=== PATIENT | female | born 1985 | race Two or more races ===

== ENCOUNTER 2017-07-20 15:46 | Emergency (ER) | payer OTHER ==
[~2017-07-20] VITALS: Ht 165.1 cm; Wt 93.4 kg
[2017-07-20] MEDS ORDERED: IBUPROFEN 600 MG TAB PO STA (15:50)
[2017-07-20] MEDS ORDERED: LIDOCAINE HCL 1% LOCAL INJ 20 ML VIAL INJ ONE (16:15)
[2017-07-20] MEDS ORDERED: TETANUS/DIPHTHERIA TOX ADULT 0.5 ML SYR IM ONE (16:15)
[2017-07-20 17:38] VITALS: BP 111/75
== END 2017-07-20 17:28 | disposition home or self-care (01) ==
LOC: ER 15:46
DX: S61.213A Laceration without foreign body of left middle finger without damage to nail, initial encounter (principal); Z33.1 Pregnant state, incidental
CPT/HCPCS: 12001; 99283; J2001

== ENCOUNTER 2017-07-26 22:39 | Emergency (ER) | payer OTHER ==
[~2017-07-26] VITALS: Ht 165.1 cm; Wt 93.4 kg
--- OUTSIDE RECORDS SUMMARY | 2017-07-26 22:41 | XMS REPORT | Continuity of Care Document ---
Author Author [facility] Organization [facility] Address [address] [place] [address] Phone Unavailable Care Team Providers Care [employer] Professor Name Role Phone NO, PCP PCP Unavailable Advance Directives Directive Response Recorded Date/Time Does the patient have an advance directive? No 07/20/17 5:33pm If yes, is advance directive on file with [facility]? No 07/20/17 5:33pm If not on file with [facility] will patient provide a copy? No 07/20/17 5:33pm Do you have a Directive to Physician? No 07/20/17 5:33pm Do you have a Medical Power of Gear Machinist? No 07/20/17 5:33pm Do you have an out of hospital Do Not Resuscitate Order? No 07/20/17 5:33pm Do you have any special needs we should be aware of? No 07/20/17 5:33pm Do you have a support person here with you today? No 07/20/17 5:33pm Did patient receive Notice of Privacy Practices? Yes 07/20/17 5:33pm Did patient receive patient rights and responsibilities? Yes 07/20/17 5:33pm Problems No problem information available. Medications No medication information available. Social History No social history information available. Hospital Discharge Instructions No hospital discharge instruction information available. Plan of Care Discharge Date 07/20/17 5:28pm Disposition HOME, SELF-CARE Condition at Discharge Stable Instructions/Education Provided Laceration Forms Provided Work/School Excuse Prescriptions See Medication Section Referrals NATY JONES MD Address: [address] [place] [address] [address] [place] [address] Additional Instructions/Education 1. follow up with your doctor in 1-2 days without fail 2. return to ed as needed 3. tylenol as needed for pain 4. sutures out in 5-7 days Functional Status No functional status information available. Allergies, Adverse Reactions, Alerts No known allergies. Immunizations No immunization information available. Vital Signs Acute Vital Signs Vital Response Date/Time Pulse Pulse Rate (adult) 95 bpm (60 - 90) 07/20/2017 5:38pm Respiratory Rate 20 bpm (12 - 24) 07/20/2017 5:38pm Blood Pressure 111/75 mm Hg 07/20/2017 5:38pm Height 5 ft 5 in 07/20/2017 3:59pm Weight 206 lb 07/20/2017 3:59pm Body Mass Index 34.3 kg/m^2 07/20/2017 3:59pm Results No relevant diagnostic test, laboratory data and/or discharge summary information available. Procedures No procedure information available. Encounters Encounter Location Arrival/Admit Date Discharge/Depart Date Attending Provider Departed Emergency Room [facility] 07/20/17 3:46pm 5:28pm DERRICK EMMANUEL MD
== END 2017-07-26 23:10 | disposition home or self-care (01) ==
LOC: ER 22:39
DX: Z48.00 Encounter for change or removal of nonsurgical wound dressing (principal)
CPT/HCPCS: 99282

== ENCOUNTER 2018-03-10 13:46 | Emergency (ER) | payer OTHER ==
[~2018-03-10] VITALS: Ht 165.1 cm; Wt 89.4 kg
--- NOTE | 2018-03-10 16:04 | Diagnostic Imaging Report ---
Exam: Right Ankle Series. History: Ankle pain after fall Comparison: None. DISCUSSION: 3 views of the right ankle. There is normal bone mineralization. No evidence of acute, displaced fracture or dislocation. Ankle mortise is preserved.No osteochondral lesion. No abnormal soft tissue calcification or mass. Minimal soft tissue swelling in the lateral aspect of the ankle. IMPRESSION: 1. No acute, displaced fracture or dislocation. Minimal soft tissue swelling in the lateral aspect of the ankle The staff physician below has personally reviewed this exam on the date of dictation. Signed by: Dr. Chevy Delaney M.D. on 03/10/2018 4:01 PM
--- NOTE | 2018-03-10 16:07 | Diagnostic Imaging Report ---
Exam: Right Knee Series. History: Status post fall Comparison: None. Findings: 3 views of the right knee. There is normal bone mineralization. Negative for acute, displaced fracture or dislocation. Joint spaces are relatively well-preserved. No abnormal soft tissue calcification or mass. 1.4 cm nonaggressive appearing sclerotic focus in the proximal tibial metaphysis Trace suprapatellar effusion. Impression: 1. Trace suprapatellar effusion, without acute, displaced fracture or dislocation. Signed by: Dr. Chevy Delaney M.D. on 03/10/2018 4:04 PM
[2018-03-10 17:35] VITALS: BP 117/72
== END 2018-03-10 17:25 | disposition home or self-care (01) ==
LOC: ER 13:46
DX: S93.431A Sprain of tibiofibular ligament of right ankle, initial encounter (principal); X50.1XXA Overexertion from prolonged static or awkward postures, initial encounter; Y99.0 Civilian activity done for income or pay
CPT/HCPCS: 99282

== ENCOUNTER → 2018-04-28 | Outpatient (CLI) | payer OTHER ==
--- NOTE | 2018-04-28 10:03 | Diagnostic Imaging Report ---
TECHNIQUE: Magnetic resonance imaging of the LEFT KNEE was performed WITHOUT injected contrast. HISTORY: Left knee pain COMPARISON: None available. FINDINGS: LIGAMENTS AND TENDONS: ACL: Intact PCL: Intact Collateral ligaments: Intact Iliotibial band: Unremarkable Popliteal tendon: Intact Extensor mechanism: Intact JOINT: Menisci: Medial: Free margin fraying without discrete tear Lateral: Free margin fraying without discrete tear Articular Cartilage: Medial Compartment: No focal defect. Lateral Compartment: No focal defect. Patellofemoral Compartment: No focal defect. Joint Fluid: The amount of fluid within the joint is within physiologic limits. BONE: No focal or infiltrative bone marrow replacing abnormality. No acute fracture. SOFT TISSUES: Otherwise, unremarkable. IMPRESSION: No acute osseous, ligamentous, or meniscal abnormality. Signed by: Dr. Richardson Duke M.D. on 04/28/2018 9:59 AM
== END ==
LOC: MRI 08:41
PROVIDERS: ATTEND Specialist
DX: S83.242A Other tear of medial meniscus, current injury, left knee, initial encounter (principal)